=== PATIENT | female | born 1985 | race Caucasian/White ===

== ENCOUNTER 2018-05-25 07:11 | Outpatient (CLI) | payer OTHER ==
[2018-05-25] MEDS ORDERED: fentaNYL 100 MCG/2 ML INJ IVP PRN (08:11)
[2018-05-25] MEDS ORDERED: NALOXONE HCL 0.4 MG/ML INJ IVP PRN (08:11)
[2018-05-25] MEDS ORDERED: MIDAZOLAM 2 MG/2 ML VIAL IVP PRN (08:11)
[2018-05-25] MEDS ORDERED: MEPERIDINE 25 MG/ML SYR IVP PRN (08:11)
[2018-05-25] MEDS ORDERED: FLUMAZENIL 0.5 MG/5 ML MDV IVP PRN (08:11)
[2018-05-25] MEDS ORDERED: NS 1,000 ML IV SCH (08:15)
[2018-05-25] MEDS ORDERED: LIDOCAINE 1% 300 MG/30 ML SDV ONE (08:29)
--- NOTE | 2018-05-25 09:48 | PDPROPOC ---
Sedation Plan of Care Sedation Plan of Care: vital signs stable, mental status noted, patient educated of risks, benefits, alternatives, patient can tolerate sedation ASA Classification: ASA 1 Planned drugs: fentanyl, midazolam Mallampati Score: Class 1 Mallampati Reference Image: Patient passed 3-3-2 rule?: Yes
--- NOTE | 2018-05-25 09:48 | PDRADPRE ---
Radiology History & Physical Indication for procedure: cancer Home medications: Aciphex 20 mg PO DAILY 05/21/18 [Last Taken 05/25/18] Allergies/Adverse Reactions: No Known Allergies Allergy (Unverified 05/21/18 10:53) Mental status: A&Ox3 Heart exam: regular rate and rhythm Lungs exam: clear to auscultation Mallampati Score: Class 1
[2018-05-25] MEDS ORDERED: oxyCODONE IR 5 MG TAB PO PRN (09:49)
[2018-05-25] MEDS ORDERED: ONDANSETRON 4 MG/2 ML VIAL IVP PRN (09:49)
--- NOTE | 2018-05-25 09:49 | PDRADPN ---
Radiology Procedure Note Date of Procedure: 05/25/18 Radiologist: Roscoe Morris Anesthesia: IV Sedation Pre-op Diagnosis: Retroperitoneal Mass Post-op Diagnosis: Retroperitoneal Mass Indication: Retroperitoneal Mass Procedure: US guided core biopsy Finding(s): 18 ga core biopsy Inf/Abcess present in the surg proc area at time of surgery?: No EBL: Minimal
[2018-05-25 11:18] VITALS: BP 95/62
== END 2018-05-25 11:25 | disposition home or self-care (01) ==
LOC: FIMAGING 07:11
PROVIDERS: ATTEND Internal Medicine Hematology & Oncology
PROC: 0WBH3ZX Excision of Retroperitoneum, Percutaneous Approach, Diagnostic (ICD-10-PCS; principal; 2018-05-25 10:15)
DX: R19.00 Intra-abdominal and pelvic swelling, mass and lump, unspecified site (principal)
CPT/HCPCS: 88323-90; 88342; J2250; J2310; J3010